=== PATIENT | male | born 1955 | race Caucasian/White ===

== ENCOUNTER 2025-04-07 16:15 | Emergency (ER) | payer OTHER ==
[2025-04-07 17:43] LABS: BASOPHILS ABSOLUTE AUTO 0.02 K/uL (0.00-0.20); BASOPHILS PERCENT AUTO 0.1 % (0.0-1.0); EOSINOPHILS ABSOLUTE AUTO 0.08 K/uL (0.00-0.45); EOSINOPHILS PERCENT AUTO 0.5 % (0.0-6.0); IMMATURE GRAN ABSOLUTE AUTO 0.10 K/uL (0.00-0.05); IMMATURE GRAN PERCENT AUTO 0.6 % (0.0-0.4); LYMPHOCYTES ABSOLUTE AUTO 1.93 K/uL (1.00-4.80); LYMPHOCYTES PERCENT AUTO 12.2 % (24.0-44.0); MEAN PLATELET VOLUME 9.7 fL (9.4-12.4); MONOCYTES ABSOLUTE AUTO 1.19 K/uL (0.00-0.80); MONOCYTES PERCENT AUTO 7.5 % (0.0-8.0); NEUTROPHILS ABSOLUTE AUTO 12.49 K/uL (1.80-7.70); NEUTROPHILS PERCENT AUTO 79.1 % (41.0-71.0); NRBC ABSOLUTE 0.00 K/uL (0.00-0.02); NRBC PERCENT 0.0 /100WBC (0.0-0.2); PLATELET COUNT,PLT 443 K/uL (150-400); RED BLOOD CELL COUNT 4.26 M/uL (4.52-5.90); WHITE BLOOD CELL COUNT,WBC 15.81 K/uL (3.9-11.3)
[2025-04-07 18:09] LABS: A/G RATIO 0.8 (0.9-1.6); ALANINE AMINOTRANSFERASE,ALT 23.0 IU/L (14-63); ASPARTATE AMNIOTRANSFERASE,AST 18.0 IU/L (15-37); BILIRUBIN TOTAL 0.7 mg/dL (0.2-1.0); BLOOD UREA NITROGEN,BUN 14.0 mg/dL (7.0-18.0); CARBON DIOXIDE,CO2 27.7 mmol/L (21.0-32.0); CHLORIDE,CL 101.0 mmol/L (98-107); CREATININE 0.9 mg/dL (0.8-1.3); EST CRCL DRUG DOSING (CG) 83.83 mL/min; GLUCOSE RANDOM 97.0 mg/dL (74-106); POTASSIUM,K 3.8 mmol/L (3.5-5.1); PROTEIN TOTAL,TP 7.7 g/dL (6.4-8.2); SODIUM,NA 138.0 mmol/L (136-148)
[2025-04-07 18:12] LABS: ESTIMATED GFR 92.0 mL/min (>60)
[2025-04-07] MEDS: Iopamidol 755 Mg/ML 100 ML Bottle IVPUSH ONE (18:35)
[2025-04-07 18:50] LABS: GLUCOSE,URINE 100 mg/dL (NEGATIVE); OCCULT BLOOD,URINE LARGE (NEGATIVE)
[2025-04-07 18:58] LABS: APPEARANCE,URINE CLOUDY
[2025-04-07 18:59] LABS: EPITHELIAL CELLS,URINE RARE (NONE-FEW)
== END 2025-04-07 21:55 ==
LOC: MW.ED 16:15
DX: N39.0 Urinary tract infection, site not specified (principal); R35.0 Frequency of micturition; R05.2 Subacute cough; L98.8 Other specified disorders of the skin and subcutaneous tissue; K57.92 Diverticulitis of intestine, part unspecified, without perforation or abscess without bleeding
CPT/HCPCS: 36415; 71046; 74177; 80053; 81001; 83605; 83735; 85025; 87086; 87088; 87186; 96361; 96365; 99285; A9270; J2543; J7030; J7620; Q9967